=== PATIENT | female | born 1955 | race Caucasian/White ===

== ENCOUNTER 2022-05-10 22:50 | Emergency (ER) | payer OTHER ==
[~2022-05-10] VITALS: Ht 154.9 cm; Wt 72.6 kg
[~2022-05-10 22:50] MED LIST: MEDROL DOSEPAK4 MG PO; NAPROSYN500 MG PO; ROBAXIN500 M1 PO
[2022-05-10] MEDS ORDERED: ASPIRIN ADULT L81 M1 PO (23:14)
[2022-05-10] MEDS ORDERED: LIPITOR40 MG PO (23:14)
[2022-05-10] MEDS ORDERED: OMEPRAZOLE40 MG PO (23:15)
[2022-05-10] MEDS ORDERED: LISINOPRIL-HCT1 EACH PO (23:15)
[2022-05-11] MEDS ORDERED: PREDNISONE20 M1 PO (01:55)
== END 2022-05-11 02:03 | disposition home or self-care (01) ==
LOC: ED 22:50
DX: M25.531 Pain in right wrist (principal); M25.561 Pain in right knee; M25.551 Pain in right hip; M79.604 Pain in right leg; Z88.0 Allergy status to penicillin; Z79.899 Other long term (current) drug therapy; Z79.82 Long term (current) use of aspirin; Z98.51 Tubal ligation status; Z90.710 Acquired absence of both cervix and uterus

== ENCOUNTER 2023-03-09 15:07 | Emergency (ER) | payer OTHER ==
[~2023-03-09] VITALS: Wt 71.7 kg
[~2023-03-09 15:07] MED LIST changes: +ASPIRIN ADULT L81 M1 PO; +LIPITOR40 MG PO; +LISINOPRIL-HCT1 EACH PO; +OMEPRAZOLE40 MG PO; +PREDNISONE20 M1 PO
[2023-03-09] MEDS ORDERED: VIBRAMYCIN100 MG PO (16:15)
== END 2023-03-09 16:18 | disposition home or self-care (01) ==
LOC: ED 15:07
DX: S20.162A Insect bite (nonvenomous) of breast, left breast, initial encounter (principal); I10 Essential (primary) hypertension; Z88.0 Allergy status to penicillin; Z98.51 Tubal ligation status; Z90.710 Acquired absence of both cervix and uterus; W57.XXXA Bitten or stung by nonvenomous insect and other nonvenomous arthropods, initial encounter; Y93.89 Activity, other specified; Y92.89 Other specified places as the place of occurrence of the external cause; Y99.8 Other external cause status

== ENCOUNTER 2025-07-23 14:49 | Emergency (ER) | payer OTHER ==
[~2025-07-23] VITALS: Wt 63.5 kg
[~2025-07-23 14:49] MED LIST changes: +VIBRAMYCIN100 MG PO
[2025-07-23] MEDS ORDERED: LIDOCAINE 4% PATCH T ONE (16:15)
[2025-07-23] MEDS ORDERED: LIDO KING1 EACH T (18:36)
== END 2025-07-23 18:41 | disposition home or self-care (01) ==
LOC: ED 14:49
DX: M54.50 Low back pain, unspecified (principal); M79.604 Pain in right leg; M79.605 Pain in left leg; I10 Essential (primary) hypertension; Z90.710 Acquired absence of both cervix and uterus; Z88.0 Allergy status to penicillin